=== PATIENT | male | born 1985 | race African-American/Black ===

== ENCOUNTER 2019-05-02 23:20 | Emergency (ER) | payer SELFPAY ==
[2019-05-02 23:20] VITALS: BP 159/99; PULSE 105; RESP 18; TEMP 35.5; O2SAT 99; BMI 28.0
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
== END 2019-05-03 00:36 ==
LOC: ED 05-03 00:04
PROVIDERS: Emergency Provider Emergency Medicine
DX: Z04.1 Encounter for examination and observation following transport accident (principal); V43.52XA Car driver injured in collision with other type car in traffic accident, initial encounter; Y92.410 Unspecified street and highway as the place of occurrence of the external cause; J45.909 Unspecified asthma, uncomplicated; F17.210 Nicotine dependence, cigarettes, uncomplicated
CPT/HCPCS: 99282

== ENCOUNTER 2020-01-12 17:47 | Emergency (ER) | payer SELFPAY ==
[2020-01-12 17:48] VITALS: BP 135/77; PULSE 101; RESP 16; TEMP 36.9; O2SAT 98; BMI 26.2
[2020-01-12] MEDS: Albuterol 2.5 MG/3 ML VIAL.NEB. INHALATION ×3 (18:42)
[2020-01-12 18:54] VITALS: PULSE 115; RESP 16
[2020-01-12 19:02] LABS: Absolute Neutrophil Count 5.3 X10^3/uL (2.0-7.7); Basophil# 0.05 X10^3/uL; Basophil% 0.6 % (0-1); Eosinophil# 0.08 X10^3/uL; Hematocrit 50.9 % (40-54); Hemoglobin 16.6 g/dL (13.0-16.5); Lymphocyte % 18.9 % (19-41); Mean Corp Hgb Conc 32.6 g/dL (32-36); Mean Corpuscular Hgb 30.6 pg (27.0-32.0); Mean Corpuscular Volume 93.7 fL (80-94); Mean Platelet Vol. 10.9 fl (6.2-12.0); Monocyte# 0.89 X10^3/uL; Monocyte% 11.2 % (0-10); NRBC Flagged by Analyzer 0 % (0-5); Neutrophil % 66.7 % (47-70); Platelet Count 215 K/mm3 (150-450); RBC Distribution Width CV 12.2 % (11.6-14.6); Red Blood Count 5.43 M/mm3 (4.6-6.2)
--- NOTE | 2020-01-12 19:09 | ED.VIS.GEN ---
History of Present Illness Chief Complaint: Fever Detail of Chief Complaint: Fever, upper respiratory symptoms, cough, wheezing Informant: Patient Onset: Yesterday Context: Sudden Onset Timing: Continuous Quality: Documented temperature 102.9 ?F, upper respiratory symptoms Location: Respiratory Current Severity: Mild Maximum Severity: Moderate Worsened by: Increased shortness of breath with activity Relieved by: Nothing Associated Symptoms: Infectious symptoms, myalgias arthralgias Narrative: Patient is a 34-year-old male who does smoke and has history of asthma who presents with documented temperature to 102.9 degrees, nasal congestion, runny nose, postnasal drainage, throat discomfort, cough, shortness of breath, wheezing, dyspnea on exertion. He works as a service delivery supervisor. He has been in and out of many people's houses. He has no known exposure to COVID-19. He does report headache. He denies photophobia, neck pain or neck stiffness. He denies discoloration of his joints. Denies loss of taste or smell. His and son are not ill. Prior similar symptoms: No Recent Illness/Hospitalization: No - Past Medical History (1) History of asthma Status: Acute Past Medical History - Allergies and Home Meds Allergies/Adverse Reactions: Allergies SEAFOOD Allergy (Uncoded 01/12/20 17:50) Itching Primary Care Physician: [facility] [Primary Care Provider] - Prior records reviewed: Yes Surgical History: noncontributory Lives: Spouse/ Significant Other, With Family Smoking Status: Current every day smoker Alcohol: Rare Drugs: None Review of Systems General: Reports: Chills, Fever, Malaise, Sweats Eyes: Denies: Visual changes - bilaterally, Blurred Vision - bilaterally ENT: Reports: Rhinorrhea, Sore throat. Denies: Bilateral ear pain Cardiovascular: Reports: Palpitations. Denies: Chest pain, Heart racing Respiratory: Reports: Dyspnea, Cough, Dyspnea on exertion. Denies: Orthopnea, Paroxysmal nocturnal dyspnea Gastrointestinal: Reports: Nausea. Denies: Abdominal pain, Vomiting, Diarrhea, Constipation, Melena, Hematochezia, -, - Genitourinary: Denies: Dysuria, Hematuria, Frequency Musculoskeletal: Reports: Myalgias, Arthralgias. Denies: Neck pain, Back pain, Swelling, Extremity Pain, -, - Neurological: Reports: Headache. Denies: Weakness, Parasthesia Endocrine: Denies: Polyuria, Polydipsia Hematologic: Denies: Easy bruising, Easy bleeding Physical Exam Vital Signs/Narrative: Vital Signs Temp Pulse Resp BP Pulse Ox 01/12/20 18:54 115 H 16 01/12/20 17:48 98.4 F 101 H 16 135/77 H 98 Inital Vital Signs reviewed: Yes General: Well nourished, Well developed Head: Normocephalic, Atraumatic Eyes: Perrl, EOMI. Negative for: Pale conjunctiva, Scleral icterus ENT: Moist mucous membranes, TM's clear, Nasal congestion. Negative for: No rhinorrhea Cardiovascular: Regular rhythm, No murmurs, Normal S1, Tachycardia Respiratory: Chest nontender, Wheezing, Decreased Air Movement. Negative for: No distress, CTA bilaterally Abdomen: Soft, Nontender, Nondistended, Normal bowel sounds Rectal: Deferred Back: Nontender Extremities: Nontender, No edema Skin: Normal color, No rash, Diaphoresis Neurological: Alert, Oriented x3, Cranial nerves II-XII grossly intact, Normal Strength, Normal Sensation Psychological: Normal affect Diagnostic/Tx/Re-eval Chest X-Ray - ED: 1 View, Read by ED Physician, Normal, Heart, Lungs, Mediastinum, Bony Structures, No Acute Disease 01/12/20 19:17 Chest 1 View (Portable) [RAD] Stat Laboratory Results 01/12/20 01/12/20 01/12/20 18:45 18:45 18:45 WBC 8.0 RBC 5.43 Hgb 16.6 H Hct 50.9 MCV 93.7 MCH 30.6 MCHC 32.6 RDW Std Deviation 42.0 RDW Coeff of Wali 12.2 Plt Count 215 MPV 10.9 Immature Gran % (Auto) 1.600 H Neut % (Auto) 66.7 Lymph % (Auto) 18.9 L Angelina % (Auto) 11.2 H Eos % (Auto) 1.0 Baso % (Auto) 0.6 Absolute Neuts (auto) 5.3 Absolute Lymphs (auto) 1.50 Nucleated RBC % 0 Sodium 142 Potassium 3.8 Chloride 107 Carbon Dioxide 31.0 Anion Gap 4 L BUN 14 Creatinine 1.53 H Estim Creat Clear Calc 68.67 Est GFR (MDRD) Af Amer 68 Est GFR (MDRD) Non-Af 56 L BUN/Creatinine Ratio 9.2 L Glucose 91 Lactic Acid 0.8 Calcium 9.4 Total Bilirubin 0.50 AST 21 ALT 43 Alkaline Phosphatase 104 Total Protein 7.9 Albumin 3.8 Globulin 4.1 Albumin/Globulin Ratio 0.9 Ratings elevated 1.53. There is no history of kidney disease. COVID test is pending. Chest x-ray per my interpretation is normal. Pertussis signed out. Patient feels improved. Will treat for viral upper respiratory infection suspect COVID. Was discharged with prescription for prednisone and metered-dose inhaler. - Medical Decision Making He may represent upper respiratory viral infection, pneumonia, COVID-19 causing exacerbation of his asthma. Appropriate laboratory tests were obtained as well as chest x-ray. He was treated with albuterol since he has history of asthma and not COPD. ED Disposition - Plan for ED Patient: Disposition: Home or Assisted Living Diagnosis: Suspected COVID-19 virus infection, Fever due to virus, Bronchospasm with bronchitis, acute Instructions: ED Upper Resp Infec No Abx Tx Prescriptions: Prednisone [Deltasone] 40 mg PO DAILY #10 tab Transmission Status: Pending to [facility] #30 Albuterol Inhaler [Ventolin Hfa] 2 puff INHALATION Q4H PRN PRN #1 inhaler PRN Reason: Wheezing Transmission Status: Pending to [facility]30 Referrals: [facility] [Primary Care Provider] - 3-5 Days if not improving
[2020-01-12 19:15] VITALS: BP 132/96; PULSE 95; RESP 24; TEMP 36.9; O2SAT 97
--- NOTE | 2020-01-12 19:17 | RAD_ITS ---
STUDY: X-RAY CHEST REASON FOR EXAM: Male, 34 years old. FEVER, COUGH TECHNIQUE: Single AP portable view of the chest. COMPARISON: None. FINDINGS: The lungs are clear and expanded. There is no demonstrated pleural abnormality. Normal size heart. Normal mediastinum and elizabeth. Normal visualized pulmonary arteries. Normal visualized aortic arch and descending thoracic aorta. Normal visualized thoracic spine. Normal visualized ribs, clavicles, and shoulders. There is no demonstrated abnormality of the visualized soft tissue structures of the upper abdomen. RAD/Chest 1 View (Portable) IMPRESSION: Normal x-ray examination of the chest. Electronically Signed: Shashank Hernandez MD at 19:45 EDT , Service support ,
[2020-01-12 19:19] LABS: ALB/GLOB Ratio 0.9 RATIO (0.9-2.4); AST(SGOT) 21 U/L (15-37); Alanine Aminotransfer ALT/SGPT 43 U/L (16-61); Albumin, Serum 3.8 g/dL (3.2-5.0); Alkaline Phosphatase 104 U/L (45-117); Anion Gap 4 (5-15); BUN 14 mg/dL (7-18); BUN/Creat Ratio 9.2 RATIO (10-20); Calcium,Total 9.4 mg/dL (8.5-10.1); Chloride 107 mmol/L (98-107); Creatinine, Serum 1.53 mg/dL (0.70-1.30); EST Glomerular Filtration Rate 56 mL/min (>60); Est Glom Filt Rate - Afr Amer 68 mL/min (>60); Estimated Creatinine Clearance 68.67 ml/min; Globulin 4.1 g/dL (2.2-4.2); Glucose 91 mg/dL (74-106); Potassium 3.8 mmol/L (3.5-5.1); Protein, Total 7.9 g/dL (6.4-8.2); Sodium Level 142 mmol/L (136-145)
[2020-01-12 19:25] LABS: Lactic Acid 0.8 mmol/L (0.4-1.9)
[2020-01-12 19:57] VITALS: BP 143/80; PULSE 112; RESP 24; TEMP 37; O2SAT 95
[2020-01-12 20:26] VITALS: BP 133/75; PULSE 110; RESP 24; O2SAT 98
== END 2020-01-12 20:27 | disposition home or self-care (01) ==
PROVIDERS: Emergency Provider Emergency Medicine
DX: Z20.828 Contact with and (suspected) exposure to other viral communicable diseases (principal); R50.9 Fever, unspecified; J20.9 Acute bronchitis, unspecified; J45.909 Unspecified asthma, uncomplicated; F17.200 Nicotine dependence, unspecified, uncomplicated; Z91.013 Allergy to seafood
CPT/HCPCS: 36415; 71045; 80053; 83605; 85025; 87040; 87633; 87635; 94640; 99281; 99285; A4216; U0003

== ENCOUNTER 2020-09-23 14:16 | Emergency (ER) | payer SELFPAY ==
[2020-09-23 14:16] VITALS: BP 148/89; PULSE 49; RESP 16; TEMP 36.3; O2SAT 97; BMI 25.8
--- NOTE | 2020-09-23 15:09 | EX.ED.UPPERE ---
HPI History of Present Illness HPI Narrative: Patient presents with a laceration to his left index finger that occurred today. Patient states he was using a knife to cut some zip ties. Patient states the knife slipped and he cut his left index finger. Patient states his last tetanus was approximately 1 year ago. Patient describes his pain as throbbing. Patient states the pain is better whenever he applies pressure to the area. Patient states the bleeding stopped after several minutes of pressure. Patient admits to some slight burning and tingling in the tip of his finger. Patient denies any weakness. Patient denies any other injuries. Chief Complaint: Laceration Informant: patient Occured/Mechanism Comment: Cut with knife Onset/Context/Timing Context: Sudden Onset Timing: Continuous Quality of Pain: Throbbing Worsened by: Nothing Relieved by: Pressure Associated Symptoms Associated Symptoms: Negative for Parasthesia, Weakness and Loss of Funtion PFSH PFSH Medical History Anxiety Asthma Depression Smoker Home Medications NK 09/23/20 [History Last Taken Unknown] Allergy/AdvReac Type Severity Reaction Status Date / Time SEAFOOD Allergy Itching Uncoded 09/23/20 14:19 Social History Smoking Status: Current every day smoker tobacco type: cigarettes ROS ROS ED Constitutional Constitutional ED: Reports sweats; Denies chills or fever(s) Eyes Eyes: Denies blurry vision or change in vision ENT ENT ED: Denies rhinorrhea or sore throat Cardiovascular Cardiovascular: Denies chest pain or palpitations Respiratory/Chest Respiratory/Chest: Denies cough or dyspnea Gastrointestinal Gastrointestinal: Denies nausea or vomiting Genitourinary Genitourinary ED: Denies dysuria or hematuria Musculoskeletal Musculoskeletal: Denies back pain or neck pain Integumentary Denies abscess or rash Neurologic Neurologic: Denies headache(s) or weakness Allergic/Immunologic Allergic/Immunologic ED: Denies mouth swelling or urticaria EXAM Physical Exam Const Vital Signs: 09/23/20 14:16 Temperature 97.3 F L Temperature Source Temporal Pulse Rate 49 L Respiratory Rate 16 Blood Pressure 148/89 H Blood Pressure Mean 108 Pulse Ox 97 Oxygen Delivery Method Room Air Positive well nourished and well developed General Appearance ED: well developed HEENT Reports moist mucous membranes Neck full ROM Skin Skin Narrative: There is a 1 cm linear laceration over the radial aspect of the distal phalanx of the left index finger. This goes into the nail plate. There is minimal gapping of the wound margins. There is no active bleeding noted. There are no foreign bodies noted. Sensation was intact to light touch in all digits. Capillary refill was less than 2 seconds in all digits. There is full range of motion of the left index finger in flexion and extension. MDM MDM MDM Narrative Medical decision making narrative: The wound was cleaned and irrigated with copious muscle normal saline. The wound was closed with Dermabond skin adhesive. Patient tolerated the procedure well. Patient was instructed to avoid bacitracin, Neosporin, triple antibiotic, or other Vaseline-based ointments. Patient was instructed to keep the wound clean and dry. Patient was instructed to follow-up with his primary care physician in 5 to 7 days. Patient understood and was agreeable with the plan. All questions were answered. Discharge Plan Triage Chief Complaint: Laceration ED Provider: Geovani Cox Dx/Rx/DC Orders Clinical Impression: Laceration of left index finger Instructions: ED Laceration, Hand: All Closures Prescriptions: No Action NK RF: 0 Primary Care Provider: [facility] Referrals: [facility] [Primary Care Provider] - 5-7 Days Disposition Disposition: Home, Self Care
[2020-09-23 15:33] VITALS: PULSE 82; RESP 15; O2SAT 99
== END 2020-09-23 15:34 | disposition home or self-care (01) ==
LOC: ED 15:34
PROVIDERS: Emergency Provider Emergency Medicine
DX: S61.211A Laceration without foreign body of left index finger without damage to nail, initial encounter (principal); W26.0XXA Contact with knife, initial encounter; J45.909 Unspecified asthma, uncomplicated; F17.210 Nicotine dependence, cigarettes, uncomplicated
CPT/HCPCS: 12001; 99283